=== PATIENT | female | born 1945 | race Caucasian/White ===

== ENCOUNTER 2016-11-13 10:03 | Emergency (ER) | payer MEDICARE, MEDICAID ==
[~2016-11-13] VITALS: Ht 162.6 cm; Wt 100.8 kg
[~2016-11-13 10:03] MED LIST: CEFD300C37 PO; GLIM4TAB PO; LISI5TAB7 PO; OMEP-110 PO
[2016-11-13] MEDS ORDERED: SODIUM CHLORIDE FLUSH 10ML SYR IVF ONE (11:00)
[2016-11-13] MEDS ORDERED: SODIUM CHLORIDE 0.9% 1,000ML IVBOLUS ONE (11:00)
[2016-11-13] MEDS ORDERED: MORPHINE SULFATE 4 MG/ML, 1ML ONE (11:08)
[2016-11-13] MEDS ORDERED: ONDANSETRON 2MG/ML, 2ML ONE (11:08)
[2016-11-13 11:12] LABS: HEMATOCRIT 45.3 % (34.6-47.8); HEMOGLOBIN 15.3 g/dL (11.7-16.4); WHITE BLOOD COUNT 7.1 x10^3/uL (3.4-10)
[2016-11-13 11:22] LABS: BLOOD UREA NITROGEN 11 mg/dL (7-18)
[2016-11-13] MEDS ORDERED: MORPHINE SULFATE 4 MG/ML, 1ML IVPush PRN (11:30)
[2016-11-13] MEDS ORDERED: ONDANSETRON 2MG/ML, 2ML IVPush ONE (11:30)
[2016-11-13] MEDS ORDERED: GADOBUTROL 10 MMOL/10 ML PFS ONE (11:38)
[2016-11-13 15:03] VITALS: BP 118/78
== END 2016-11-13 15:06 | disposition home or self-care (01) ==
LOC: ED 15:00
DX: M51.36 Other intervertebral disc degeneration, lumbar region (principal); M54.16 Radiculopathy, lumbar region; I10 Essential (primary) hypertension; E11.9 Type 2 diabetes mellitus without complications; Z90.710 Acquired absence of both cervix and uterus
CPT/HCPCS: 36415; 70450; 72158; 80048; 82040; 85025; 96361; 96374; 96375; 99285; A9585; J2405; J7030

== ENCOUNTER → 2017-01-21 | Outpatient (CLI) | payer MEDICARE, MEDICAID | END | disposition home or self-care (01) | LOC: RAD 07:26 | PROVIDERS: ATTEND Neurological Surgery | DX: M50.223 Other cervical disc displacement at C6-C7 level (principal); M48.02 Spinal stenosis, cervical region | CPT/HCPCS: 72050; 72141 ==

== ENCOUNTER 2017-04-24 15:43 | Emergency (ER) | payer MEDICARE, MEDICAID ==
[~2017-04-24] VITALS: Ht 162.6 cm; Wt 96.4 kg
[2017-04-24 16:22] LABS: BASOPHILS # (AUTO) 0.01 x10^3/uL (0-0.1); BASOPHILS % (AUTO) 0 % (0-1); EOSINOPHILS % (AUTO) 2 % (1-7); LYMPHOCYTES # (AUTO) 2.05 x10^3/uL (1-3.4); LYMPHOCYTES % (AUTO) 30 % (22-44); MD NO; MEAN CORPUSCULAR HEMOGLOBIN 29.5 pg (27.0-34.8); MEAN CORPUSCULAR HGB CONC 33.5 g/dL (32.4-35.8); MEAN PLATELET VOLUME 10.3 fL (7.4-10.4); MONOCYTES # (AUTO) 0.36 x10^3/uL (0.2-0.8); MONOCYTES % (AUTO) 5 % (2-9); NEUTROPHILS # (AUTO) 4.35 x10^3/uL (1.8-6.8); NEUTROPHILS % (AUTO) 63 % (42-75); PLATELET COUNT 189 x10^3/uL (130-400); RED BLOOD COUNT 5.22 x10^6/uL (3.82-5.3); RED CELL DISTRIBUTION WIDTH 13.6 % (9.6-15.2)
[2017-04-24 16:31] LABS: ANION GAP 6 mmol/L (5-15); CALCIUM 8.8 mg/dL (8.5-10.1); CHLORIDE 108 mmol/L (98-107); CREATININE 0.93 mg/dL (0.55-1.02)
[2017-04-24 16:32] LABS: ALBUMIN 3.3 g/dL (3.4-5.0)
[2017-04-24] MEDS ORDERED: KETOROLAC 30 MG/1 ML ONE (17:53)
[2017-04-24] MEDS ORDERED: DIPHENHYDRAMINE 50 MG/ML, 1ML ONE (17:53)
[2017-04-24] MEDS ORDERED: METOCLOPRAMIDE 5 MG/ML, 2ML ONE (17:53)
[2017-04-24] MEDS ORDERED: SODIUM CHLORIDE FLUSH 10ML SYR IVF ONE (18:00)
[2017-04-24] MEDS ORDERED: KETOROLAC 30 MG/1 ML IVPush ONE (18:00)
[2017-04-24] MEDS ORDERED: SODIUM CHLORIDE 0.9% 1,000ML IVBOLUS ONE (18:00)
[2017-04-24] MEDS ORDERED: DIPHENHYDRAMINE 50 MG/ML, 1ML IVPush ONE (18:00)
[2017-04-24] MEDS ORDERED: METOCLOPRAMIDE 5 MG/ML, 2ML IVPush ONE (18:00)
[2017-04-24] MEDS ORDERED: AMLO10TA2 PO (18:25)
[2017-04-24 18:54] LABS: MICROSCOPIC AUTO
[2017-04-24 18:55] LABS: CULTURE INDICATED? YES
[2017-04-24 20:06] VITALS: BP 140/82
== END 2017-04-24 20:28 | disposition home or self-care (01) ==
LOC: ED 18:56
DX: G44.209 Tension-type headache, unspecified, not intractable (principal); N30.90 Cystitis, unspecified without hematuria; I10 Essential (primary) hypertension; E11.9 Type 2 diabetes mellitus without complications; M54.2 Cervicalgia
CPT/HCPCS: 36415; 70450; 80048; 81001; 82040; 85025; 87077; 87086; 87186; 96361; 96374; 96375; 99285; J1200; J1885; J2765; J7030

== ENCOUNTER 2020-04-02 10:06 | Emergency (ER) | payer MEDICARE, MEDICAID ==
[~2020-04-02] VITALS: Ht 157.5 cm; Wt 95.0 kg
[~2020-04-02 10:06] MED LIST changes: +AMLO-211 PO
[2020-04-02] MEDS ORDERED: HYDROcodone/APAP 5/325 TABLET PO ONE (10:30)
[2020-04-02] MEDS ORDERED: DIAZEPAM 5 MG TABLET PO ONE (10:30)
[2020-04-02] MEDS ORDERED: HYDROcodone/APAP 5/325 TABLET ONE (10:35)
[2020-04-02] MEDS ORDERED: DIAZEPAM 5 MG TABLET ONE (10:35)
--- NOTE | 2020-04-02 10:51 | NUR ---
PT TO ROOM 9 W/ C/O COCCYX AND SACRAL PAIN RADIATING TO ANTERIOR LOWER PELVIS AFTER PT HAD MGLF AT HOME. STATES SHE WAS WALKING DOWN THE STAIRS AND SHE SLIPPED ON THE LAST STEP AND FELL ON HER BUTTOCKS. PT DENIES HITTING HEAD/LOC. DENIES FEELING DIZZY/LIGHTHEADED PRIOR TO FALL. PT RESTING ON [facility]. YAMILETH.
[2020-04-02 11:13] LABS: BASOPHILS % (AUTO) 1 % (0-1); EOSINOPHILS % (AUTO) 1 % (1-7); LYMPHOCYTES % (AUTO) 25 % (22-44); MEAN CORPUSCULAR HEMOGLOBIN 28.2 pg (27.0-34.8); MEAN CORPUSCULAR HGB CONC 33.6 g/dL (32.4-35.8); MEAN PLATELET VOLUME 9.4 fL (7.4-10.4); MONOCYTES % (AUTO) 6 % (2-9); NEUTROPHILS % (AUTO) 67 % (42-75); PLATELET COUNT 196 x10^3/uL (130-400); RED BLOOD COUNT 5.31 x10^6/uL (3.82-5.3); RED CELL DISTRIBUTION WIDTH 14.9 % (9.6-15.2)
[2020-04-02 11:14] LABS: MD NO
[2020-04-02 11:15] LABS: MICROSCOPIC NOT IND
[2020-04-02 11:20] LABS: ALBUMIN 3.5 g/dL (3.4-5.0); ANION GAP 10 mmol/L (5-15); CALCIUM 9.1 mg/dL (8.5-10.1); CHLORIDE 109 mmol/L (98-107)
[2020-04-02 11:22] VITALS: BP 128/78
--- NOTE | 2020-04-02 11:22 | NUR ---
PT RESTING ON GURNEY. NADN. LAIRD.
== END 2020-04-02 12:21 | disposition home or self-care (01) ==
LOC: ED 10:27
DX: S39.012A Strain of muscle, fascia and tendon of lower back, initial encounter (principal); E11.65 Type 2 diabetes mellitus with hyperglycemia; R10.32 Left lower quadrant pain; I10 Essential (primary) hypertension; W01.0XXA Fall on same level from slipping, tripping and stumbling without subsequent striking against object, initial encounter; Y93.89 Activity, other specified; Y92.89 Other specified places as the place of occurrence of the external cause; Y99.8 Other external cause status
CPT/HCPCS: 36415; 72110; 72220; 80048; 81003; 82040; 85025; 99284